=== PATIENT | female | born 1945 | race Caucasian/White ===

== ENCOUNTER → 2021-04-21 | Outpatient (CLI) | payer OTHER ==
[~2021-04-21] MED LIST: ALL DAY ALLERGY10 M2 PO; ARTHRITIS PAIN650 M2 PO; ASPIRIN 325MG325 MG PO; BUSPIRONE HCL5 MG PO; CELEXA40 MG PO; HYDROCHLOROTHIA25 MG PO; NORCO 7.5-3251 EACH PO; NORVASC10 MG PO; PEPCID40 MG PO; ZOCOR 40 MG TAB40 MG PO
== END ==
LOC: EXRD 09:46
DX: R22.42 Localized swelling, mass and lump, left lower limb (principal)
CPT/HCPCS: 93971